=== PATIENT | female | born 1995 | race African-American/Black ===

== ENCOUNTER 2020-07-07 13:31 | Emergency (ER) | payer MEDICAID, OTHER ==
[~2020-07-07] VITALS: Ht 167.6 cm; Wt 64.2 kg
[2020-07-07 13:39] VITALS: BP 147/75
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
[2020-07-07] MEDS ORDERED: ACETAMINOPHEN 325 MG TABLET PO ONE (14:15)
[2020-07-07] MEDS ORDERED: cefTRIAXone IM 250 MG VIAL IM ONE (14:15)
[2020-07-07] MEDS ORDERED: AZITHROMYCIN 250 MG TABLET. PO ONE (14:15)
[2020-07-07 14:38] LABS: CLARITY,URINE TURBID; COLOR,URINE AMBER
[2020-07-07 14:39] LABS: BACTERIA,URINE MOD /HPF (0-FEW); BILIRUBIN,URINE NEG (NEG); GLUCOSE,URINE NEG (NEG); GRANULAR CASTS,URINE MOD /HPF; HYALINE CASTS, URINE FEW /HPF; NITRITE,URINE NEG (NEG); SQUAMOUS EPITHELIAL CELL,UR MOD /LPF
[2020-07-07 14:40] LABS: U PREG PATIENT NEGATIVE (NEG)
== END 2020-07-07 14:54 | disposition home or self-care (01) ==
LOC: ER 13:31
DX: Z20.2 Contact with and (suspected) exposure to infections with a predominantly sexual mode of transmission (principal); R07.81 Pleurodynia; R51 Headache; R30.0 Dysuria; F41.9 Anxiety disorder, unspecified; F31.9 Bipolar disorder, unspecified; K21.9 Gastro-esophageal reflux disease without esophagitis; Z87.440 Personal history of urinary (tract) infections; Z98.890 Other specified postprocedural states; Z88.1 Allergy status to other antibiotic agents; Z91.040 Latex allergy status; Z88.8 Allergy status to other drugs, medicaments and biological substances
CPT/HCPCS: 81001; 81025; 87086; 96372; 99283; J0456; J0696

== ENCOUNTER 2020-07-10 19:02 | Emergency (ER) | payer MEDICAID ==
[~2020-07-10] VITALS: Ht 167.6 cm; Wt 64.3 kg
[2020-07-10 19:15] VITALS: BP 120/67
[2020-07-10] MEDS ORDERED: diphenhydrAMINE 50 MG/ML VIAL IVP ONE (19:30)
[2020-07-10] MEDS ORDERED: KETOROLAC 30 MG/ML VIAL. IVP ONE (19:30)
[2020-07-10] MEDS ORDERED: IV NORMAL SALINE 1,000ML 1,000 ML IV ONE (19:30)
[2020-07-10] MEDS ORDERED: METOCLOPRAMIDE HCL 10 MG/2 ML VIAL. IVP ONE (19:30)
[2020-07-10] MEDS ORDERED: METOCLOPRAMIDE HCL 10 MG/2 ML VIAL. ONE (19:34)
[2020-07-10] MEDS ORDERED: KETOROLAC 30 MG/ML VIAL. ONE (19:34)
[2020-07-10] MEDS ORDERED: diphenhydrAMINE 50 MG/ML VIAL ONE (19:34)
[2020-07-10] MEDS ORDERED: FAMOTIDINE 20 MG/2 ML VIAL ONE (19:58)
[2020-07-10] MEDS ORDERED: FAMOTIDINE 20 MG/2 ML VIAL IVP ONE (20:00)
[2020-07-10] MEDS ORDERED: PANTOPRAZOLE IV 40 MG VIAL. IVP ONE (20:00)
--- NOTE | 2020-07-10 20:02 | PHYS DOC ---
Past History Past Medical History: Anxiety, Bipolar, Depression, GERD, UTI Past Surgical History: , Tonsillectomy Alcohol Use: None General Adult EDM: Chief Complaint: HEADACHE HPI: HPI: 25-year-old female presents with headache. Patient has a history of migraines. This headache started around 130 this afternoon. She typically gets these with her menstrual cycle and she is on that currently. She has photophobia and has vomited at least twice today. The pain is on the left side of her head from front to back. Patient also complains about intermittent episodes of vomiting at night. These seem to come out of nowhere. Patient has a long history of GERD but is currently not treating it. She denies fever chills. Review of Systems: Review of Systems: Constitutional: Denies fever or chills Eyes: Denies change in visual acuity. Photophobia HENT: Denies nasal congestion or sore throat Respiratory: Denies cough or shortness of breath Cardiovascular: Denies chest pain or edema GI: Denies abdominal pain, nausea, vomiting, bloody stools or diarrhea : Denies dysuria Musculoskeletal: Denies back pain or joint pain Integument: Denies rash Neurologic: Headache. Denies focal weakness or sensory changes Endocrine: Denies polyuria or polydipsia Lymphatic: Denies swollen glands Psychiatric: Denies depression or anxiety Heart Score: Risk Factors: Risk Factors: DM, Current or recent (<one month) smoker, HTN, HLP, family history of CAD, obesity. Risk Scores: Score 0 - 3: 2.5% MACE over next 6 weeks - Discharge Home Score 4 - 6: 20.3% MACE over next 6 weeks - Admit for Clinical Observation Score 7 - 10: 72.7% MACE over next 6 weeks - Early Invasive Strategies Current Medications: Current Meds: Current Medications Medications (Trade) Dose Ordered Sig/Raissa Start Time Stop Time Status Last Admin Dose Admin Diphenhydramine HCl (Benadryl) 50 mg STK-MED ONCE 07/10/20 19:34 07/10/20 19:35 DC Ketorolac Tromethamine (Toradol 30mg Vial) 30 mg STK-MED ONCE 07/10/20 19:34 07/10/20 19:35 DC Metoclopramide HCl (Reglan Vial) 10 mg STK-MED ONCE 07/10/20 19:34 07/10/20 19:35 DC Sodium Chloride 1,000 ml @ 1,000 mls/hr 1X ONCE 07/10/20 19:30 07/10/20 20:29 07/10/20 19:54 1,000 MLS/HR Allergies: Allergies: Allergies Coded Allergies Type Severity Reaction Last Updated Verified amoxicillin Allergy Unknown 07/07/20 Yes haloperidol Allergy Unknown 07/07/20 Yes latex Allergy Unknown 07/07/20 Yes Physical Exam: PE: Constitutional: Well developed, well nourished, no acute distress, non-toxic appearance. [] HENT: Normocephalic, atraumatic, bilateral external ears normal, oropharynx moist, no oral exudates, nose normal. [] Eyes: PERRLA, EOMI, conjunctiva normal, no discharge. [] Neck: Normal range of motion, no tenderness, supple, no stridor. [] Cardiovascular: Heart rate regular rhythm, no murmur [] Lungs & Thorax: Bilateral breath sounds clear to auscultation [] Abdomen: Bowel sounds normal, soft, no tenderness, no masses, no pulsatile masses. [] Skin: Warm, dry, no erythema, no rash. [] Back: No tenderness, no CVA tenderness. [] Extremities: No tenderness, no cyanosis, no clubbing, ROM intact, no edema. [] Neurologic: Alert and oriented X 3, normal motor function, normal sensory function, no focal deficits noted. [] Psychologic: Affect normal, judgement normal, mood normal. [] Current Patient Data: Vital Signs: Vital Signs Date Time Temp Pulse Resp B/P (MAP) Pulse Ox O2 Delivery O2 Flow Rate FiO2 07/10/20 19:15 98.4 77 16 120/67 (84) 98 Room Air EKG: EKG: [] Radiology/Procedures: Radiology/Procedures: [] Course & Med Decision Making: Course & Med Decision Making Pertinent Labs and Imaging studies reviewed. (See chart for details) The patient's labs are unremarkable. Her urinalysis is negative for infection. I have given her a liter normal saline, 30 mg of Toradol, 10 mg Reglan, 25 mg of Benadryl for headache. Her COVID-19 swab is pending. She is stable for discharge at this time. [] Dragon Disclaimer: Dragon Disclaimer: This electronic medical record was generated, in whole or in part, using a voice recognition dictation system. Departure Departure: Impression: Primary Impression: Migraine headache Qualified Codes: G43.019 - Migraine without aura, intractable, without status migrainosus Disposition: HOME/RESIDENCE PRIOR TO ADM Condition: STABLE Referrals: ELADIO HAWKINS MD (PCP) Patient Instructions: Migraine Headache, [id number] Justification of Admission: Justification of Admission: Justification of Admission Dx: N/A TODD KERN DO Jul 10, 2020 20:02
[2020-07-10 20:25] LABS: BASO # 0.1 x10^3/uL (0.0-0.2); BASO % 1 % (0-3); EOS # 0.1 x10^3/uL (0.0-0.7); EOS % 1 % (0-3); HEMATOCRIT 33.7 % (36.0-47.0); HEMOGLOBIN 10.9 g/dL (12.0-15.5); LYMPH # 2.3 x10^3/uL (1.0-4.8); LYMPH % 28 % (24-48); MEAN CORPUSCULAR HEMOGLOBIN 28 pg (25-35); MEAN CORPUSCULAR HGB CONC 32 g/dL (31-37); MEAN CORPUSCULAR VOLUME 85 fL (79-100); MONO # 0.6 x10^3/uL (0.0-1.1); MONO % 7 % (0-9); NEUT # 5.2 x10^3uL (1.8-7.7); NEUT % 63 % (31-73); PLATELET COUNT 280 x10^3/uL (140-400); RED BLOOD COUNT 3.95 x10^6/uL (3.50-5.40); RED CELL DISTRIBUTION WIDTH 13.9 % (11.5-14.5); WHITE BLOOD COUNT 8.2 x10^3/uL (4.0-11.0)
[2020-07-10 20:26] LABS: CALCIUM 9.2 mg/dL (8.5-10.1); CREATININE 0.9 mg/dL (0.6-1.0); GFR 90.9; POTASSIUM 3.1 mmol/L (3.5-5.1)
[2020-07-10 20:32] LABS: ALBUMIN 3.4 g/dL (3.4-5.0); ALBUMIN/GLOBULIN RATIO 0.9 (1.0-1.7); TOTAL BILIRUBIN 0.3 mg/dL (0.2-1.0); TOTAL PROTEIN 7.1 g/dL (6.4-8.2)
[2020-07-10 20:39] LABS: BILIRUBIN,URINE NEG (NEG); CLARITY,URINE HAZY; COLOR,URINE YELLOW; GLUCOSE,URINE NEG (NEG)
[2020-07-10 20:40] LABS: NITRITE,URINE NEG (NEG); UROBILINOGEN,URINE 0.2 mg/dL (0.2 mg/dL)
[2020-07-10 20:42] LABS: BARBITURATES NEG (NEG); BENZODIAZEPINES NEG (NEG); CANNABINOIDS POS (NEG); COCAINE NEG (NEG); METHADONE NEG (NEG); OPIATES NEG (NEG); PHENCYCLIDINE NEG (NEG)
[2020-07-10 20:43] LABS: WBC,URINE OCC /HPF (0-4)
[2020-07-10 20:44] LABS: BACTERIA,URINE 0 /HPF (0-FEW); SQUAMOUS EPITHELIAL CELL,UR OCC /LPF
[2020-07-10 20:45] LABS: AMPHETAMINE/METHAMPHETAMINE NEG (NEG)
== END 2020-07-10 23:25 | disposition home or self-care (01) ==
LOC: ER 19:02
DX: G43.019 Migraine without aura, intractable, without status migrainosus (principal); R11.10 Vomiting, unspecified; F41.9 Anxiety disorder, unspecified; F32.9 Major depressive disorder, single episode, unspecified; K21.9 Gastro-esophageal reflux disease without esophagitis; Z20.828 Contact with and (suspected) exposure to other viral communicable diseases; Z87.440 Personal history of urinary (tract) infections; Z98.890 Other specified postprocedural states; Z88.1 Allergy status to other antibiotic agents; Z91.040 Latex allergy status; Z88.8 Allergy status to other drugs, medicaments and biological substances
CPT/HCPCS: 36415; 80053; 80307; 81001; 85025; 96361; 96374; 96375; 99284; C9113; J1200; J1885; J2765; J3490; J7030; U0003

== ENCOUNTER 2020-11-11 11:32 | Emergency (ER) | payer MEDICAID ==
[~2020-11-11] VITALS: Ht 167.6 cm; Wt 64.3 kg
[2020-11-11 11:35] VITALS: BP 139/67
[2020-11-11 12:17] LABS: BASO # 0.1 x10^3/uL (0.0-0.2); BASO % 1 % (0-3); EOS # 0.2 x10^3/uL (0.0-0.7); EOS % 3 % (0-3); HEMATOCRIT 35.3 % (36.0-47.0); HEMOGLOBIN 11.2 g/dL (12.0-15.5); LYMPH # 2.3 x10^3/uL (1.0-4.8); LYMPH % 33 % (24-48); MEAN CORPUSCULAR HEMOGLOBIN 27 pg (25-35); MEAN CORPUSCULAR HGB CONC 32 g/dL (31-37); MEAN CORPUSCULAR VOLUME 83 fL (79-100); MONO # 0.4 x10^3/uL (0.0-1.1); MONO % 6 % (0-9); NEUT % 57 % (31-73); PLATELET COUNT 290 x10^3/uL (140-400); RED BLOOD COUNT 4.23 x10^6/uL (3.50-5.40); RED CELL DISTRIBUTION WIDTH 15.5 % (11.5-14.5)
--- NOTE | 2020-11-11 12:22 | RAD ---
EXAM: Chest, single view. HISTORY: Syncope. COMPARISON: None. FINDINGS: A frontal view of the chest is obtained. There is no infiltrate, pleural effusion or pneumo thorax. The heart is normal in size. IMPRESSION: No acute pulmonary finding. Electronically signed by: Kendra Colin MD (11/11/2020 12:20 PM) [id number]
--- NOTE | 2020-11-11 12:30 | EKG ---
[address] [address] Test Date: 2020-11-11 Test Time: 11:55:48 Pat Name: ISABEL STEELE Department: Room: Gender: F Financial Services Consultant: : 1995 Requested By: ESTEFANÍA KING Order Number: [id number] Reading MD: Daniel Mccullough Measurements Intervals [place] Rate: 78 P: 66 MI: 136 QRS: 79 QRSD: 86 T: 28 QT: 382 QTc: 439 Interpretive Statements SINUS RHYTHM NORMAL ECG RI6.02 No previous ECG available for comparison Electronically Signed On 11-12-2020 13:35:36 [employer]PERIMENT[employer] MECH[employer]IC by Daniel Mccullough
[2020-11-11 12:31] LABS: CALCIUM 9.3 mg/dL (8.5-10.1); GFR 80.5; POTASSIUM 3.3 mmol/L (3.5-5.1)
[2020-11-11 12:37] LABS: PREG TEST PT QUAL NEGATIVE (NEG)
[2020-11-11] MEDS ORDERED: ONDANSETRON PF 4 MG/2 ML VIAL. IVP ONE (13:15)
[2020-11-11 13:44] LABS: AMPHETAMINE/METHAMPHETAMINE NEG (NEG); BARBITURATES NEG (NEG); BENZODIAZEPINES NEG (NEG); CANNABINOIDS POS (NEG); COCAINE NEG (NEG); METHADONE NEG (NEG); OPIATES NEG (NEG); PHENCYCLIDINE NEG (NEG)
--- NOTE | 2020-11-11 14:25 | PHYS DOC ---
Past History Past Medical History: Anxiety, Bipolar, Depression, GERD, UTI, Other Additional Past Medical Histor: Gasteropersis, Barretts esophagus Past Surgical History: , Tonsillectomy Alcohol Use: None General Adult EDM: Chief Complaint: SYNCOPE HPI: HPI: 25-year-old female (LMP 11/04-11/10) past medical history bipolar disorder, anxiety, Pelletier's esophagus, gastroparesis, migraine headaches, tobacco abuse, vaping and reports former marijuana abuse, presents to the ED with complaints of "passing out" at home, does not believe she hit her head- states she's awake during this and has no post-ictal confusion, no associated urinary or bowel retention or incontinence or tongue laceration/oral bleeding. Does report preceding symptoms of lightheadedness, "I cannot see and I leave my brain." EMS reported pt had a pseudo seizure in route with spontaneous/quick return to baseline. Patient denies any alcohol, cocaine or marijuana abuse stating she gave up marijuana while ago. Patient reports she has passed out multiple times before but does not know the official diagnosis-has not had a pseudoseizures. No h/o admissions, head injury. No history of cardiac evaluation for syncope. No family history of cardiac arrhythmias, sudden under the age of 50, connective tissue disorders, coagulopathy with DVT or PEs. Grandmother with history of CAD and CHF. Review of Systems: Review of Systems: Constitutional: Denies fever or chills Eyes: Denies change in visual acuity HENT: Denies nasal congestion or sore throat Respiratory: Denies cough or shortness of breath Cardiovascular: Denies chest pain or edema GI: Denies abdominal pain, nausea, bloody stools or diarrhea : Denies dysuria, hematuria or vaginal bleeding Musculoskeletal: Denies back pain or joint pain Integument: Denies rash or diaphoresis Neurologic: Denies headache, midline neck pain or neck stiffness, focal weakness or sensory changes Endocrine: Denies polyuria or polydipsia Lymphatic: Denies swollen glands Psychiatric: Denies depression or anxiety Current Medications: Current Meds: Current Medications Medications (Trade) Dose Ordered Sig/Raissa Start Time Stop Time Status Last Admin Dose Admin Ondansetron HCl (Zofran) 4 mg 1X ONCE 11/11/20 13:15 11/11/20 13:16 DC 11/11/20 13:19 4 MG Allergies: Allergies: Allergies Coded Allergies Type Severity Reaction Last Updated Verified amoxicillin Allergy Unknown 07/07/20 Yes haloperidol Allergy Unknown 07/07/20 Yes latex Allergy Unknown 07/07/20 Yes Physical Exam: PE: Constitutional: Well developed, well nourished, no acute distress, non-toxic appearance. HENT: Normocephalic, atraumatic, no signs of head trauma, no tongue or oral trauma Eyes: EOMI, conjunctiva normal, no discharge. Neck: Normal range of motion, supple, Cardiovascular: S1/2 present, regular rhythm Lungs & Thorax: Speaking in full sentences, bilateral equal chest rise, no tachypnea or increased work of breathing Abdomen: soft, no tenderness, clear emesis in ED Skin: Warm, dry, no erythema, no rash. [] Back: No tenderness, no CVA tenderness. [] Extremities: No tenderness, no cyanosis, no edema Neurologic: Alert and oriented X 3, normal motor function, normal sensory function, no focal deficits noted. [] Psychologic: Affect normal, judgement normal, mood normal-anxious Nexus C-spine criteria are negative: There is no post midline tenderness, the patient is not intoxicated, there is a normal level of alertness, there are no focal neurologic deficits and there are no distracting injuries. Current Patient Data: Labs: Laboratory Tests Test 11/11/20 11:40 11/11/20 13:19 White Blood Count 7.0 x10^3/uL (4.0-11.0) Red Blood Count 4.23 x10^6/uL (3.50-5.40) Hemoglobin 11.2 g/dL (12.0-15.5) L Hematocrit 35.3 % (36.0-47.0) L Mean Corpuscular Volume 83 fL (79-100) Mean Corpuscular Hemoglobin 27 pg (25-35) Mean Corpuscular Hemoglobin Concent 32 g/dL (31-37) Red Cell Distribution Width 15.5 % (11.5-14.5) H Platelet Count 290 x10^3/uL (140-400) Neutrophils (%) (Auto) 57 % (31-73) Lymphocytes (%) (Auto) 33 % (24-48) Monocytes (%) (Auto) 6 % (0-9) Eosinophils (%) (Auto) 3 % (0-3) Basophils (%) (Auto) 1 % (0-3) Neutrophils # (Auto) 4.0 x10^3uL (1.8-7.7) Lymphocytes # (Auto) 2.3 x10^3/uL (1.0-4.8) Monocytes # (Auto) 0.4 x10^3/uL (0.0-1.1) Eosinophils # (Auto) 0.2 x10^3/uL (0.0-0.7) Basophils # (Auto) 0.1 x10^3/uL (0.0-0.2) Sodium Level 140 mmol/L (136-145) Potassium Level 3.3 mmol/L (3.5-5.1) L Chloride Level 103 mmol/L (98-107) Carbon Dioxide Level 28 mmol/L (21-32) Anion Gap 9 (6-14) Blood Urea Nitrogen 8 mg/dL (7-20) Creatinine 1.0 mg/dL (0.6-1.0) Estimated GFR (Cockcroft-Gault) 80.5 Glucose Level 68 mg/dL (70-99) L Calcium Level 9.3 mg/dL (8.5-10.1) Creatine Kinase 242 U/L (26-192) H Serum Test, Qualitative Negative (NEG) Urine Opiates Screen Neg (NEG) Urine Methadone Screen Neg (NEG) Urine Barbiturates Neg (NEG) Urine Phencyclidine Screen Neg (NEG) Urine Amphetamine/Methamphetamine Neg (NEG) Urine Benzodiazepines Screen Neg (NEG) Urine Cocaine Screen Neg (NEG) Urine Cannabinoids Screen Pos (NEG) Urine Ethyl Alcohol Neg (NEG) Vital Signs: Vital Signs Date Time Temp Pulse Resp B/P (MAP) Pulse Ox O2 Delivery O2 Flow Rate FiO2 11/11/20 11:35 98.0 95 16 139/67 (91) 98 Room Air EKG: EKG: Sinus rhythm at 70 bpm, no axis deviation, normal intervals, no T wave inversions, no ST elevations or ST depressions Radiology/Procedures: Radiology/Procedures: IMAGING REPORT Signed PATIENT: ISABEL STEELE NACCOUNT: [id number] : 1995 LOCATION: ER AGE: 25 SEX: F EXAM STATUS: REG ER ORD. PHYSICIAN: ESTEFANÍA KING DO REASON: syncope PROCEDURE: CHEST AP ONLY EXAM: Chest, single view. HISTORY: Syncope. COMPARISON: None. FINDINGS: A frontal view of the chest is obtained. There is no infiltrate, pleural effusion or pneumothorax. The heart is normal in size. IMPRESSION: No acute pulmonary finding. Electronically signed by: Kendra Vickers MD (11/11/2020 12:20 PM) [id number] DICTATED AND SIGNED BY: KENDRA VICKERS MD DATE: 11/11/20 1219 CC: KENDRA HAWKINS MD; ESTEFANÍA KING DO ~MTH0 0 Heart Score: Risk Factors: Risk Factors: DM, Current or recent (<one month) smoker, HTN, HLP, family history of CAD, obesity. Risk Scores: Score 0 - 3: 2.5% MACE over next 6 weeks - Discharge Home Score 4 - 6: 20.3% MACE over next 6 weeks - Admit for Clinical Observation Score 7 - 10: 72.7% MACE over next 6 weeks - Early Invasive Strategies Course & Med Decision Making: Course & Med Decision Making Pertinent Labs and Imaging studies reviewed. (See chart for details) Uncertain for vasovagal (vs dehydration-situational) syncope in a patient with recurrent symptoms for multiple years-very bizarre presentation, highly suspect pseudoseizures-no recurrence of these events while in emergency department. No signs of head injury. Patient states she normally becomes nauseous after this happens. Has no headache, neck stiffness or pain or neurologic deficits. Urinalysis consistent with marijuana use-hyperemesis cannabinoid (allergic to haldol)?. Chest x-ray with no infection. EKG with no abnormal arrhythmia. Will discharge home with strict ED return precautions were given for recurrent syncope, chest pain, dyspnea or neurologic deficits. Encouraged urgent outpatient follow-up with PMD and cardiology for outpatient syncope evaluation. Life-threatening processes were considered but are low suspicion at this time, given history, physical exam and ED workup. Pt was educated on all prescription medications and adverse effects. All patient's questions were answered and pt was stable at time of discharge. Life/limb-threatening differential includes but is not limited to, abdominal aortic aneurysm, aortic dissection, acute coronary syndrome, anemia, valvular disorder, cerebrovascular accident, drug overdose or toxidrome, arrhythmia, prolonged QT syndrome, hemorrhage, heat illness, intracranial hemorrhage, infection including meningitis/encephalitis/sepsis/toxic shock/myocarditis, vertebrobasilar insufficiency, seizure, medication adverse event, illicit drug use, electrolyte disorder I spoken with the patient and her caregivers. I explained the patient's condition, diagnoses and treatment plan based on the information available to me at this time. I have answered the patient and her caregiver's questions and addressed any concerns. The patient and her caregivers have a good understanding of patient's diagnosis, condition and treatment plan as can be expected at this point. Vital signs have been stable. Patient's condition is stable and appropriate for discharge from the emergency department. Patient will pursue further outpatient evaluation with primary care physician or other designated or consulting physician as outlined in the discharge instruc tions. The patient and/or caregivers are agreeable to this plan of care and follow-up instructions have been explained in detail. The patient and/or caregivers have received these instructions in written form and have expressed an understanding of the discharge instructions. The patient and/or caregivers are aware that any significant change of condition or worsening of symptoms should prompt immediate return to this or the closest emergency department or call to [email or web address] Disclaimer: [employer] Disclaimer: This electronic medical record was generated, in whole or in part, using a voice recognition dictation system. Departure Departure: Impression: Primary Impression: Syncope Additional Impressions: Tetrahydrocannabinol (THC) use disorder, mild, abuse Hypoglycemia Nausea Disposition: 01 DC HOME SELF CARE/HOMELESS Condition: STABLE Referrals: KENDRA HAWKINS MD (PCP) in 2-3 days Patient Instructions: Nausea, Adult, Syncope Additional Instructions: FOLLOW UP WITH CARDIOLOGY: [facility] [id number] [id number] [place] [facility] [address] [place] [id number] EMERGENCY DEPARTMENT GENERAL DISCHARGE INSTRUCTIONS Thank you for coming to [facility] (ED) today and trusting us with you care. We trust that you had a positivie experience in our Emergency Department. If you wish to speak to the department management, you may call the director at [phone]. YOUR FOLLOW UP INSTRUCTIONS ARE FOLLOWS: 1. Do you have a private Doctor? If you do not have a private doctor, please ask for a resource list of physicians or clinics that may be able to assist you with follow up care. 2. The Emergency Physician has interpreted your x-rays. The X-Ray specialist will also review them. If there is a change in the findings, you will be notified in 48 hours when at all possible. 3. A lab test or culture has been done, your results will be reviewed and you will be notified if you need a change in treatment. ADDITIONAL INSTRUCTIONS AND INFORMATION: 1. Your care today has been supervised by a physician who is specially trained in emergency care. Many problems require more than one evaluation for a complete diagnosis and treatment. We recommend that you schedule your follow up appointment as recommended to ensure complete treatment of you illness or injury. If you are unable to obtain follow up care and continue to have a problem, or if your condition worsens, we recommend that you return to the ED. 2. We are not able to safely determine your condition over the phone nor are we able to give sound medical advice over the phone. For these safety reasons, if you call for medical advice we will ask you to come to the ED for further evaluation. 3. If you have any questions regarding these discharge instructions please call the ED at [phone]. SAFETY INFORMATION: In the interest of safety, wellness, and injury prevention; we encourage you to wear your sealbelt, if you smoke; quite smoking, and we encourage family to use a protective helmet for bicycling and other sporting events that present an increased risk for head injury. IF YOUR SYMPTOMS WORSEN OR NEW SYMPTOMS DEVELOP, OR YOU HAVE CONCERNS ABOUT YOUR CONDITION; OR IF YOUR CONDITION WORSENS WHILE YOU ARE WAITING FOR YOUR FOLLOW UP APPOINTMENT; EITHER CONTACT YOUR PRIMARY CARE DOCTOR, THE PHYSICIAN WHOSE NAME AND NUMBER YOU WERE GIVEN, OR RETURN TO THE ED IMMEDIATELY. Scripts Capsaicin (CAPSAICIN) 42.5 Gm Cream..g. 1 RAMIRO TP TID for nausea/vomiting, #1 TUBE 0 Refills Prov: ESTEFANÍA KING DO 11/11/20 Ondansetron (ONDANSETRON ODT) 4 Mg Tab.rapdis 4 MG PO Q6HRS for Nausea/Vomiting, #15 TAB Prov: ESTEFANÍA KING DO 11/11/20 ESTEFANÍA KING DO Nov 11, 2020 14:25
[2020-11-11] MEDS ORDERED: ONDA4TAB12 PO (14:56)
[2020-11-11] MEDS ORDERED: CAPS42.514 TP (14:57)
== END 2020-11-11 15:13 | disposition home or self-care (01) ==
LOC: ER 11:32
DX: R55 Syncope and collapse (principal); F12.29 Cannabis dependence with unspecified cannabis-induced disorder; E16.2 Hypoglycemia, unspecified; R11.0 Nausea; F31.9 Bipolar disorder, unspecified; F41.9 Anxiety disorder, unspecified; G43.909 Migraine, unspecified, not intractable, without status migrainosus; K21.9 Gastro-esophageal reflux disease without esophagitis; Z87.440 Personal history of urinary (tract) infections; Z72.0 Tobacco use; Z88.1 Allergy status to other antibiotic agents; Z91.040 Latex allergy status; Z88.8 Allergy status to other drugs, medicaments and biological substances
CPT/HCPCS: 36415; 71045; 80048; 80307; 82550; 84703; 85025; 93005; 96374; 99285; J2405

== ENCOUNTER 2021-06-10 11:34 | Emergency (ER) | payer MEDICAID ==
[~2021-06-10] VITALS: Ht 157.5 cm; Wt 62.0 kg
[~2021-06-10 11:34] MED LIST: CAPS42.514 TP; ONDA4TAB12 PO
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
[2021-06-10 12:33] LABS: U PREG PATIENT POSITIVE (NEG)
[2021-06-10 12:35] LABS: BARBITURATES NEG (NEG); BENZODIAZEPINES NEG (NEG); CANNABINOIDS POS (NEG); COCAINE NEG (NEG); METHADONE NEG (NEG); OPIATES NEG (NEG); PHENCYCLIDINE NEG (NEG)
[2021-06-10 12:39] LABS: AMPHETAMINE/METHAMPHETAMINE NEG (NEG)
[2021-06-10 12:53] LABS: BACTERIA,URINE 0 /HPF (0-FEW); BILIRUBIN,URINE SMALL (NEG); CLARITY,URINE CLOUDY; COLOR,URINE AMBER; GLUCOSE,URINE NEG (NEG); NITRITE,URINE NEG (NEG); RBC,URINE 0 /HPF (0-2); SQUAMOUS EPITHELIAL CELL,UR MOD /LPF; UROBILINOGEN,URINE 0.2 mg/dL (0.2 mg/dL)
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
[2021-06-10 13:29] LABS: BASO # 0.1 x10^3/uL (0.0-0.2); BASO % 1 % (0-3); EOS # 0.1 x10^3/uL (0.0-0.7); EOS % 1 % (0-3); HEMATOCRIT 33.1 % (36.0-47.0); HEMOGLOBIN 10.7 g/dL (12.0-15.5); LYMPH # 2.2 x10^3/uL (1.0-4.8); LYMPH % 22 % (24-48); MEAN CORPUSCULAR HEMOGLOBIN 28 pg (25-35); MEAN CORPUSCULAR HGB CONC 32 g/dL (31-37); MEAN CORPUSCULAR VOLUME 87 fL (79-100); MONO # 0.8 x10^3/uL (0.0-1.1); MONO % 8 % (0-9); NEUT % 69 % (31-73); PLATELET COUNT 286 x10^3/uL (140-400); RED BLOOD COUNT 3.81 x10^6/uL (3.50-5.40); RED CELL DISTRIBUTION WIDTH 14.7 % (11.5-14.5); WHITE BLOOD COUNT 10.1 x10^3/uL (4.0-11.0)
[2021-06-10] MEDS ORDERED: ONDANSETRON ODT 4 MG TAB.RAPDIS PO ONE (13:30)
[2021-06-10 13:39] LABS: CREATININE 0.7 mg/dL (0.6-1.0); GFR 120.6; POTASSIUM 3.7 mmol/L (3.5-5.1)
[2021-06-10 13:52] LABS: ALBUMIN 3.9 g/dL (3.4-5.0); ALBUMIN/GLOBULIN RATIO 1.3 (1.0-1.7); MAGNESIUM 2.3 mg/dL (1.8-2.4); TOTAL BILIRUBIN 0.5 mg/dL (0.2-1.0); TOTAL PROTEIN 6.9 g/dL (6.4-8.2)
--- NOTE | 2021-06-10 14:01 | EKG ---
[address] [address] Test Date: 2021-06-10 Test Time: 12:24:47 Pat Name: ISABEL STEELE Department: Room: Gender: F Trains Service Conductor: KATY : 1995 Requested By: ANABELA EVERETT Order Number: [id number] Reading MD: Measurements Intervals [place] Rate: 62 P: 68 AR: 148 QRS: 74 QRSD: 86 T: 46 QT: 394 QTc: 402 Interpretive Statements SINUS RHYTHM NORMAL ECG RI6.02 No previous ECG available for comparison
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
[2021-06-10 15:30] VITALS: BP 116/50
== END 2021-06-10 15:47 | disposition home or self-care (01) ==
LOC: ER 11:34
DX: O9A.211 Injury, poisoning and certain other consequences of external causes complicating pregnancy, first trimester (principal); S80.01XA Contusion of right knee, initial encounter; S10.93XA Contusion of unspecified part of neck, initial encounter; R55 Syncope and collapse; O23.41 Unspecified infection of urinary tract in pregnancy, first trimester; K21.9 Gastro-esophageal reflux disease without esophagitis; Z3A.01 Less than 8 weeks gestation of pregnancy; Z88.1 Allergy status to other antibiotic agents; Z91.040 Latex allergy status; Z88.8 Allergy status to other drugs, medicaments and biological substances; Y08.89XA Assault by other specified means, initial encounter; Y93.89 Activity, other specified; Y92.89 Other specified places as the place of occurrence of the external cause; Y99.8 Other external cause status
CPT/HCPCS: 36415; 70450; 72125; 76801; 76817; 80053; 80307; 81001; 81025; 83735; 83880; 84484; 84702; 85025; 93005; 99285; Q0162

== ENCOUNTER → 2021-06-17 | Outpatient (CLI) | payer MEDICAID ==
[2021-06-10 15:30] VITALS: BP 116/50
--- NOTE | 2021-06-17 15:35 | RAD ---
EXAM: OBSTETRIC ULTRASOUND, <14 WEEKS. HISTORY: demise. COMPARISON: 06/10/2021. FINDINGS: Sonographic evaluation of the pelvis was performed transvaginally. The uterus is anteverted and measures 10.1 x 6.7 x 3.1 cm. There is a single intrauterine gestation m easuring 6 weeks 1 day, with crown-rump length decreased since the prior study. There is no hea rt motion consistent with demise. A large yolk sac is visualized. The gestational sac is regula r. There is no subchorionic collection. The right ovary measures 3.7 x 2.8 x 1.9 cm. The left ovary measures 3.6 x 2.3 x 2.0 cm. An echogenic nodule in the left ovary measures 2.2 x 1.9 cm. There is normal Doppler flow bilaterally. There is n o significant free fluid. IMPRESSION: 1. Findings consistent with demise. Ongoing management is recommended. 2. Stable 2.2 cm echogenic left ovarian nodule. This may represent a dermoid or a complicated follicl e. No odontoid was appreciable on CT of 10/23/2011. MRI of the pelvis could further evaluate versus 3 month follow-up. Electronically signed by: Delmis Steinberg MD (06/17/2021 3:33 PM) [id number]
== END ==
LOC: US 14:37
PROVIDERS: ATTEND Family Medicine
DX: O26.891 Other specified pregnancy related conditions, first trimester (principal); Z3A.01 Less than 8 weeks gestation of pregnancy
CPT/HCPCS: 76817

== ENCOUNTER 2021-07-24 12:23 | Emergency (ER) | payer MEDICAID ==
[~2021-07-24] VITALS: Ht 157.5 cm; Wt 62.0 kg
[2021-07-24] MEDS ORDERED: KETAMINE HCL IN NACL, ISO-OSM 50 MG/5 ML SYRINGE IV ONE (13:15)
[2021-07-24 13:43] LABS: BASO # 0.1 x10^3/uL (0.0-0.2); BASO % 1 % (0-3); EOS # 0.2 x10^3/uL (0.0-0.7); EOS % 2 % (0-3); HEMATOCRIT 35.7 % (36.0-47.0); HEMOGLOBIN 11.3 g/dL (12.0-15.5); LYMPH # 2.7 x10^3/uL (1.0-4.8); LYMPH % 30 % (24-48); MEAN CORPUSCULAR HEMOGLOBIN 27 pg (25-35); MEAN CORPUSCULAR HGB CONC 32 g/dL (31-37); MEAN CORPUSCULAR VOLUME 85 fL (79-100); MONO # 0.7 x10^3/uL (0.0-1.1); MONO % 8 % (0-9); NEUT # 5.1 x10^3uL (1.8-7.7); NEUT % 58 % (31-73); PLATELET COUNT 343 x10^3/uL (140-400); RED CELL DISTRIBUTION WIDTH 14.8 % (11.5-14.5); WHITE BLOOD COUNT 8.8 x10^3/uL (4.0-11.0)
--- NOTE | 2021-07-24 13:43 | EKG ---
[address] [address] Test Date: 2021-07-24 Test Time: 13:25:54 Pat Name: ISABEL STEELE Department: Room: Gender: F Testing Coordinator: JENNIFER : 1995 Requested By: JAMARI LIMA Order Number: [id number] Reading MD: Measurements Intervals [place] Rate: 74 P: 60 [place]: 140 QRS: 71 QRSD: 82 T: 37 QT: 348 QTc: 391 Interpretive Statements SINUS RHYTHM NORMAL ECG RI6.02 No previous ECG available for comparison
[2021-07-24 13:51] LABS: CALCIUM 9.6 mg/dL (8.5-10.1); CREATININE 0.6 mg/dL (0.6-1.0); POTASSIUM 4.2 mmol/L (3.5-5.1)
[2021-07-24 14:10] VITALS: BP 99/77
[2021-07-24 14:12] LABS: BACTERIA,URINE MOD /HPF (0-FEW); BILIRUBIN,URINE NEG (NEG); CLARITY,URINE HAZY; COLOR,URINE YELLOW; GLUCOSE,URINE NEG (NEG); NITRITE,URINE NEG (NEG); RBC,URINE OCC /HPF (0-2); SQUAMOUS EPITHELIAL CELL,UR MANY /LPF; UROBILINOGEN,URINE 0.2 mg/dL (0.2 mg/dL)
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
== END 2021-07-24 14:55 | disposition home or self-care (01) ==
LOC: ER 12:23
DX: R55 Syncope and collapse (principal); K21.9 Gastro-esophageal reflux disease without esophagitis; Z91.040 Latex allergy status; Z88.1 Allergy status to other antibiotic agents; Z88.8 Allergy status to other drugs, medicaments and biological substances
CPT/HCPCS: 36415; 80048; 81001; 81025; 84484; 85025; 85379; 87086; 93005; 96374; 99284; J2060

== ENCOUNTER 2021-11-14 09:13 | Emergency (ER) | payer MEDICAID ==
[~2021-11-14] VITALS: Ht 157.5 cm; Wt 62.0 kg
[2021-11-14 09:15] VITALS: BP 128/83
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
--- NOTE | 2021-11-14 10:49 | EKG ---
[address] [address] Test Date: 2021-11-14 Test Time: 09:23:22 Pat Name: ISABEL STEELE Department: Room: Gender: F [employer] Groover: : 1995 Requested By: JAMARI LIMA Order Number: [id number] Reading MD: Daniel Mccullough Measurements Intervals [place] Rate: 78 P: 65 WV: 132 QRS: 81 QRSD: 80 T: 46 QT: 306 QTc: 352 Interpretive Statements SINUS RHYTHM Electronically Signed On 11-14-2021 14:24:12 GANG WORKER by Daniel Mccullough
== END 2021-11-14 11:02 | disposition home or self-care (01) ==
LOC: ER 09:13
DX: F41.9 Anxiety disorder, unspecified (principal); F31.9 Bipolar disorder, unspecified; K21.9 Gastro-esophageal reflux disease without esophagitis; Z87.440 Personal history of urinary (tract) infections; Z98.890 Other specified postprocedural states; Z88.1 Allergy status to other antibiotic agents; Z91.040 Latex allergy status; Z88.8 Allergy status to other drugs, medicaments and biological substances
CPT/HCPCS: 93005; 99283

== ENCOUNTER 2021-11-27 16:49 | Emergency (ER) | payer MEDICAID ==
[~2021-11-27] VITALS: Ht 157.5 cm; Wt 62.0 kg
[2021-11-27 16:50] VITALS: BP 128/83
[2021-11-27] MEDS ORDERED: IBUPROFEN 600 MG TABLET. PO ONE (17:30)
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
[2021-11-27] MEDS ORDERED: VALA10008 PO (18:45)
[2021-11-27 19:24] LABS: BACTERIA,URINE FEW /HPF (0-FEW); BILIRUBIN,URINE NEG (NEG); CLARITY,URINE CLEAR; COLOR,URINE YELLOW; GLUCOSE,URINE NEG (NEG); NITRITE,URINE NEG (NEG); RBC,URINE 0 /HPF (0-2); SQUAMOUS EPITHELIAL CELL,UR MOD /LPF; UROBILINOGEN,URINE 0.2 mg/dL (0.2 mg/dL)
[2021-12-04 04:09] LABS: HERPES SIMPLEX TYPE 1 Negative (Negative); HERPES SIMPLEX TYPE 2 Negative (Negative)
== END 2021-11-27 18:51 | disposition home or self-care (01) ==
LOC: ER 16:58
DX: S20.213A Contusion of bilateral front wall of thorax, initial encounter (principal); B00.9 Herpesviral infection, unspecified; K21.9 Gastro-esophageal reflux disease without esophagitis; Z87.440 Personal history of urinary (tract) infections; Z88.0 Allergy status to penicillin; Z91.040 Latex allergy status; Z88.8 Allergy status to other drugs, medicaments and biological substances; Y08.89XA Assault by other specified means, initial encounter; Y93.89 Activity, other specified; Y92.89 Other specified places as the place of occurrence of the external cause; Y99.8 Other external cause status
CPT/HCPCS: 36415; 71110; 81001; 81025; 87529; 99284

== ENCOUNTER 2022-02-02 09:29 | Emergency (ER) | payer MEDICAID ==
[~2022-02-02] VITALS: Ht 157.5 cm; Wt 55.7 kg
[~2022-02-02 09:29] MED LIST changes: +VALA10008 PO
--- NOTE | 2022-02-02 09:44 | PHYS DOC ---
Past History Past Medical History: Anxiety, Bipolar, Depression, GERD, UTI, Other Additional Past Medical Histor: Gastroparesis, Barretts esophagus, heart issues Past Surgical History: , Tonsillectomy Alcohol Use: None General Adult EDM: Chief Complaint: VAGINAL BLEEDING HPI: HPI: Patient is a 27-year-old female who arrives ambulatory to the emergency department complaining of nausea with vomiting and vaginal bleeding. Patient reports this has been ongoing now for "a couple of days". Patient reports in addition to this that she is 7 weeks and has high risk care at . Patient states in addition to this she feels shaky and is unable to keep any food or liquid down by her reports. Patient states she is observed dark discharge from her vagina which she describes as dried blood. Patient does not have any concerns about STDs as she is not sexually active. She denies any fevers or illness otherwise. She is awake, alert and uncomfortable appearing. Review of Systems: Review of Systems: Constitutional: Denies fever or chills Eyes: Denies change in visual acuity HENT: Denies nasal congestion or sore throat Respiratory: Denies cough or shortness of breath Cardiovascular: Denies chest pain or edema GI: Reports nausea with vomiting. Denies abdominal pain, bloody stools or d iarrhea : Reports vaginal bleeding in Musculoskeletal: Denies back pain or joint pain Integument: Denies rash Neurologic: Denies headache, focal weakness or sensory changes Endocrine: Denies polyuria or polydipsia Lymphatic: Denies swollen glands Psychiatric: Denies depression or anxiety Allergies: Allergies: Allergies Coded Allergies Type Severity Reaction Last Updated Verified amoxicillin Allergy Unknown 07/07/20 Yes haloperidol Allergy Unknown 07/07/20 Yes latex Allergy Unknown 07/07/20 Yes Physical Exam: PE: Constitutional: Uncomfortable appearing. Well developed, well nourished, non- toxic appearance. [] HENT: Normocephalic, atraumatic, bilateral external ears normal, oropharynx moist, no oral exudates, nose normal. [] Eyes: PERRLA, EOMI, conjunctiva normal, no discharge. [] Neck: Normal range of motion, no tenderness, supple, no stridor. [] Cardiovascular:Heart rate regular rhythm, no murmur [] Lungs & Thorax: Bilateral breath sounds clear to auscultation [] Abdomen: Bowel sounds normal, soft, no tenderness, no masses, no pulsatile masses. [] Skin: Warm, dry, no erythema, no rash. [] Back: No tenderness, no CVA tenderness. [] Extremities: No tenderness, no cyanosis, no clubbing, ROM intact, no edema. [] Neurologic: Alert and oriented X 3, normal motor function, normal sensory function, no focal deficits noted. [] Psychologic: Affect normal, judgement normal, mood normal. [] Current Patient Data: Vital Signs: Vital Signs Date Time Temp Pulse Resp B/P (MAP) Pulse Ox O2 Delivery O2 Flow Rate FiO2 02/02/22 09:51 98.1 98 18 145/76 (99) 99 Room Air Vital Signs Date Time Temp Pulse Resp B/P (MAP) Pulse Ox O2 Delivery O2 Flow Rate FiO2 02/02/22 09:51 98.1 98 18 145/76 (99) 99 Room Air EKG: EKG: [] Radiology/Procedures: Radiology/Procedures: [][place] [address] IMAGING REPORT Signed PATIENT: ISABEL STEELE NACCOUNT: [id number] : 1995 LOCATION: ER AGE: 27 SEX: F EXAM STATUS: REG ER ORD. PHYSICIAN: ANGEL GARIBAY DO REASON: Vaginal bleeding. PROCEDURE: OB <14 WKS W/TV INDICATION: Reason: Vaginal bleeding. / Spl. Instructions: / History: COMPARISON: June 2021. TECHNIQUE: Grayscale and color ultrasound images of the pelvis. Transabdominal and transvaginal images obtained. Transvaginal images were needed to better visualize structures that were limited on transabdominal imaging. FINDINGS: Uterus: 97 x 65 x 48 mm. Intrauterine gestational sac is seen and unremarkable. Too early in gestation to adequately assess placenta. pole seen. CRL: 8 mm. Estimated Gestational Age: 7 weeks and 2 days Heart Beat: 109 Right Ovary: 24 x 23 x 21 mm. Left Ovary: 34 x 28 x 21 mm. Vascular flow identified to bilateral ovaries. Small hypoechoic region adjacent to the gestational sac. Nabothian cyst formation. Prominent vessels and adnexa. 19 x 18 mm echogenic lesion at left ovary. IMPRESSION: * Intrauterine is identified with heart beat of 109. Estimated gestational age of 7 weeks and 2 days. * Subtle small hypoechoic region adjacent to the gestational sac. A tiny subchorionic hematoma is not excluded. * Echogenic lesion of the left ovary. Most likely cause would be dermoid but the ultrasound appearance is nonspecific and if further information is needed pelvic MRI could better assess. Electronically signed by: Jose A Blue MD (02/02/2022 11:09 AM) [id number] DICTATED AND SIGNED BY: JOSE A BLUE MD DATE: 02/02/22 1103 CC: ANGEL GARIBAY DO; ELADIO HAWKINS MD ~ Heart Score: C/O Chest Pain: No Risk Factors: Risk Factors: DM, Current or recent (<one month) smoker, HTN, HLP, family history of CAD, obesity. Risk Scores: Score 0 - 3: 2.5% MACE over next 6 weeks - Discharge Home Score 4 - 6: 20.3% MACE over next 6 weeks - Admit for Clinical Observation Score 7 - 10: 72.7% MACE over next 6 weeks - Early Invasive Strategies Course & Med Decision Making: Course & Med Decision Making The patient remains awake, alert and in no acute distress. Patient has made a dramatic improvement in her clinical course since her arrival. Patient does have ultrasound evidence of an intrauterine . I have advised the patient to follow-up with her TREE DOCTOR as scheduled tomorrow. I have also advised that she remain hydrated during this time and should she be unable to keep liquids down that she return to the emergency department. The patient understands and has agreed to do so. She is nontoxic-appearing resting comfortably now with her mother. She is stable for discharge. [] Dragon Disclaimer: Dragon Disclaimer: This electronic medical record was generated, in whole or in part, using a voice recognition dictation system. Departure Departure: Impression: Primary Impression: Vomiting of Additional Impressions: Vaginal bleeding during Dehydration during Disposition: 01 HOME / SELF CARE / HOMELESS Condition: STABLE Referrals: ELADIO HAWKINS MD (PCP) Patient Instructions: ABCs of , Abdominal Pain During , Nausea and Vomiting, Vaginal Bleeding During , First Trimester ANGEL GARIBAY DO Feb 02, 2022 09:44
[2022-02-02] MEDS ORDERED: IV NORMAL SALINE 1,000ML 1,000 ML IV ONE ×2 (09:45→11:30)
[2022-02-02] MEDS ORDERED: ONDANSETRON PF 4 MG/2 ML VIAL. IVP ONE ×2 (09:45→12:15)
[2022-02-02 10:23] LABS: BASO # 0.1 x10^3/uL (0.0-0.2); BASO % 1 % (0-3); EOS # 0.1 x10^3/uL (0.0-0.7); EOS % 2 % (0-3); HEMATOCRIT 37.7 % (36.0-47.0); HEMOGLOBIN 12.2 g/dL (12.0-15.5); LYMPH # 2.4 x10^3/uL (1.0-4.8); LYMPH % 27 % (24-48); MEAN CORPUSCULAR HEMOGLOBIN 29 pg (25-35); MEAN CORPUSCULAR HGB CONC 32 g/dL (31-37); MEAN CORPUSCULAR VOLUME 89 fL (79-100); MONO # 0.7 x10^3/uL (0.0-1.1); MONO % 8 % (0-9); NEUT # 5.6 x10^3uL (1.8-7.7); NEUT % 63 % (31-73); PLATELET COUNT 281 x10^3/uL (140-400); RED BLOOD COUNT 4.25 x10^6/uL (3.50-5.40); RED CELL DISTRIBUTION WIDTH 14.1 % (11.5-14.5); WHITE BLOOD COUNT 8.8 x10^3/uL (4.0-11.0)
[2022-02-02 10:38] LABS: CALCIUM 9.3 mg/dL (8.5-10.1); CREATININE 0.6 mg/dL (0.6-1.0); POTASSIUM 3.4 mmol/L (3.5-5.1)
[2022-02-02 10:42] LABS: ALBUMIN 4.4 g/dL (3.4-5.0); ALBUMIN/GLOBULIN RATIO 1.3 (1.0-1.7); TOTAL BILIRUBIN 0.7 mg/dL (0.2-1.0); TOTAL PROTEIN 7.9 g/dL (6.4-8.2)
[2022-02-02 11:04] LABS: BACTERIA,URINE 0 /HPF (0-FEW); CLARITY,URINE HAZY; COLOR,URINE YELLOW; GLUCOSE,URINE NEG (NEG); NITRITE,URINE NEG (NEG); SQUAMOUS EPITHELIAL CELL,UR MANY /LPF
--- NOTE | 2022-02-02 11:12 | RAD ---
INDICATION: Reason: Vaginal bleeding. / Spl. Instructions: / History: COMPARISON: June 2021. TECHNIQUE: Grayscale and color ultrasound images of the pelvis. Transabdominal and transvaginal imag es obtained. Transvaginal images were needed to better visualize structures that were limited on tra nsabdominal imaging. FINDINGS: Uterus: 97 x 65 x 48 mm. Intrauterine gestational sac is seen and unremarkable. Too early in gestation to adequately assess p lacenta. pole seen. CRL: 8 mm. Estimated Gestational Age: 7 weeks and 2 days Heart Beat: 109 Right Ovary: 24 x 23 x 21 mm. Left Ovary: 34 x 28 x 21 mm. Vascular flow identified to bilateral ovaries. Small hypoechoic region adjacent to the gestational sac. Nabothian cyst formation. Prominent vessels and adnexa. 19 x 18 mm echogenic lesion at left ovary. IMPRESSION: * Intrauterine is identified with heart beat of 109. Estimated gestational age of 7 weeks and 2 days. * Subtle small hypoechoic region adjacent to the gestational sac. A tiny subchorionic hematoma is no t excluded. * Echogenic lesion of the left ovary. Most likely cause would be dermoid but the ultrasound appearan ce is nonspecific and if further information is needed pelvic MRI could better assess. Electronically signed by: Naeem Mcintrye MD (02/02/2022 11:09 AM) [id number]
[2022-02-02] MEDS ORDERED: PROMETHAZINE 6.25 MG/5 ML SYRUP. PO ONE (11:30)
[2022-02-02] MEDS ORDERED: PROMETHAZINE 25 MG TABLET. PO ONE ×2 (11:45→12:15)
[2022-02-02 12:23] VITALS: BP 122/78
[2022-02-03 18:23] LABS: CHLAMYDIA PROBE Negative (Negative)
== END 2022-02-02 12:28 | disposition home or self-care (01) ==
LOC: ER 09:29
DX: O99.281 Endocrine, nutritional and metabolic diseases complicating pregnancy, first trimester (principal); O21.9 Vomiting of pregnancy, unspecified; E86.0 Dehydration; O23.41 Unspecified infection of urinary tract in pregnancy, first trimester; N39.0 Urinary tract infection, site not specified; Z3A.01 Less than 8 weeks gestation of pregnancy; Z88.1 Allergy status to other antibiotic agents; Z91.040 Latex allergy status
CPT/HCPCS: 36415; 76801; 76817; 80053; 81001; 83690; 84702; 85025; 86900; 86901; 87491; 87591; 96361; 96374; 96376; 99284; J2405; J7030; Q0111; Q0169